=== PATIENT | male | born 1985 | race Caucasian/White ===

== ENCOUNTER 2020-06-13 12:30 | Outpatient (NON) | payer OTHER, SELFPAY ==
[2020-06-13 22:39] LABS: SARS-CoV-2 RNA PCR Negative
== END 2020-06-13 12:31 ==
PROVIDERS: PCP Family Medicine; Visit Provider Family Medicine
DX: Z20.828 Contact with and (suspected) exposure to other viral communicable diseases (principal); J02.9 Acute pharyngitis, unspecified
CPT/HCPCS: 87635; C9803; U0003